=== PATIENT | female | born 1940 | race Caucasian/White ===

== ENCOUNTER 2021-03-16 17:39 | Emergency (ER) | payer MEDICARE, OTHER ==
[2021-03-16] MEDS ORDERED: Famotidine 20 MG/2 ML SDV IVPUSH ONE (18:39)
[2021-03-16] MEDS ORDERED: Sodium Chloride 0.9% 1,000 ML IV ONE (18:39)
[2021-03-16] MEDS ORDERED: Alum Hydrox/Mag Hydrox/Simeth 15 ML, Lidocaine 2% 5 ML PO ONE ×2 (18:39)
--- NOTE | 2021-03-16 18:46 | EDM.PDOC ---
<Steve Jesus - Last Filed: 03/16/21 18:41> ED HPI GENERAL MEDICAL PROBLEM - General Chief Complaint: Abdominal Pain Stated Complaint: ABDOMINAL PAIN Time Seen by Provider: 03/16/21 18:31 - History of Present Illness INITIAL COMMENTS - FREE TEXT/NARRATIVE: Patient is a 81-year-old female who presents today for abdominal pain. Patient states that she takes methotrexate once a week for arthritis and she took it this past Thursday without any food. Since that time she has had an achy feeling in her belly. Patient also has some nausea has not been taking her meds due to the nausea. Patient denies any nausea diarrhea urinary symptoms fever chills. Patient states nothing makes the pain worse but sitting and laying still does make the pain better. abdomen Pain Score (Numeric/FACES): 3 - Related Data Allergies Allergy/AdvReac Type Severity Reaction Status Date / Time No Known Allergies Allergy Verified 03/16/21 18:41 Home Meds: Home Meds . [Unable to Verify Home Med List] 03/16/21 [History] ED ROS GENERAL - Review of Systems Constitutional: Reports: No Symptoms HEENT: Reports: No Symptoms Respiratory: Reports: No Symptoms Cardiovascular: Reports: No Symptoms Endocrine: Reports: No Symptoms GI/Abdominal: Reports: Abdominal Pain : Reports: No Symptoms Musculoskeletal: Reports: No Symptoms Skin: Reports: No Symptoms Neurological: Reports: No Symptoms Psychiatric: Reports: No Symptoms Hematologic/Lymphatic: Reports: No Symptoms Immunologic: Reports: No Symptoms ED EXAM, GI/ABD - Physical Exam Exam: See Below Exam Limited By: No Limitations General Appearance: Alert, WD/WN, No Apparent Distress Respiratory/Chest: No Respiratory Distress, Lungs Clear, Normal Breath Sounds Cardiovascular: Normal Peripheral Pulses, Regular Rate, Rhythm GI/Abdominal Exam: Normal Bowel Sounds, Soft, Non-Tender Neurological: Alert, Oriented, CN II-XII Intact, Normal Cognition Departure - Departure Disposition: Home, Self-Care 01 Clinical Impression: Gastritis - Discharge Information Instructions: Gastritis, Adult, Liva[facility] Referrals: PCP,Not In Area [Primary Care Provider] - Forms: ED Department Discharge Additional Instructions: For the time being take Pepcid [id number] in addition to your pantoprazole. Carry Maalox and Tums. If you have any pain that does not get be tter with those then it would be fine to return for further evaluation. If you have abdominal pain with a fever vomiting diarrhea or symptoms that are hard to control you may return. You are welcome to return at anytime for reevaluation. [facility] [address] [place] [id number] [facility] [address] [place] [id number] The following information is given to patients seen in the emergency department who are being discharged to home. This information is to outline your options for follow-up care. We provide all patients seen in our emergency department with a follow-up referral. The need for follow-up, as well as the timing and circumstances, are variable depending upon the specifics of your emergency department visit. If you don't have a primary care physician on staff, we will provide you with a referral. We always advise you to contact your personal physician following an emergency department visit to inform them of the circumstance of the visit and for follow-up with them and/or the need for any referrals to a consulting specialist. The emergency department will also refer you to a specialist when appropriate. This referral assures that you have the opportunity for follow-up care with a specialist. All of these measure are taken in an effort to provide you with optimal care, which includes your follow-up. Under all circumstances we always encourage you to contact your private physician who remains a resource for coordinating your care. When calling for follow-up care, please make the office aware that this follow-up is from your recent emergency room visit. If for any reason you are refused follow-up, please contact the [facility] Emergency Department at and asked to speak to the emergency department charge nurse. Sepsis Event Note (ED) - Evaluation Sepsis Screening Result: No Definite Risk - Assessment/Plan Plan: Patient 81-year-old female presents today for abdominal pain. On exam patient has no tenderness to palpation. Will obtain basic labs UA provide pain control and reassess. <Adam Hayden - Last Filed: 03/16/21 20:23> ED ROS GENERAL - Review of Systems Review Of Systems: Comprehensive ROS is negative, except as noted in HPI. ED EXAM, GI/ABD - Physical Exam Exam: See Below Text/Narrative:: Physical exam is contained within the document Course - Vital Signs Text/Narrative:: 1915 hrs. patient turned over to me by my partner at the end of his shift. Feels much better after GI cocktail. Abdomen soft and nontender. No umbilical hernia with Valsalva. Pain is right in the umbilicus and markedly improved. Impression is her methotrexate has irritated her gastritis or ulcer. Plan to add H2 alysia to her PPI and have her carry antacids. It looks like she will probably be discharged. 2021 hrs. the patient's abdomen remains not significantly tender. She feels comfortable trying to add Pepcid and carry an acids. She will be discharged Last Recorded V/S: Last Vital Signs Temp 36.6 C 03/16/21 18:24 Pulse 85 03/16/21 18:24 Resp 18 03/16/21 18:24 BP 162/84 H 03/16/21 18:24 Pulse Ox - Orders/Labs/Meds Orders: Active Orders 24 hr Category Date Time Status UA W/FABIEN RFLX IF INDICATED [URIN] Stat Lab 03/16/21 18:39 Ordered Labs: Laboratory Tests 03/16/21 03/16/21 03/16/21 Range/Units 18:47 18:47 18:47 WBC 7.80 (4.0-11.0) K/uL RBC 4.84 (4.30-5.90) M/uL Hgb 14.4 (12.0-16.0) g/dL Hct 43.8 (36.0-46.0) % MCV 90.5 (80.0-98.0) fL MCH 29.8 (27.0-32.0) pg MCHC 32.9 (31.0-37.0) g/dL RDW Std Deviation 44.4 (28.0-62.0) fl RDW Coeff of Ignacio 14 (11.0-15.0) % Plt Count 449 H (150-400) K/uL MPV 9.90 (7.40-12.00) fL Neut % (Auto) 65.3 (48.0-80.0) % Lymph % (Auto) 23.7 (16.0-40.0) % [place] % (Auto) 7.9 (0.0-15.0) % Eos % (Auto) 2.6 (0.0-7.0) % Baso % (Auto) 0.5 (0.0-1.5) % Neut # (Auto) 5.1 (1.4-5.7) K/uL Lymph # (Auto) 1.9 (0.6-2.4) K/uL [place] # (Auto) 0.6 (0.0-0.8) K/uL Eos # (Auto) 0.2 (0.0-0.7) K/uL Baso # (Auto) 0.0 (0.0-0.1) K/uL Nucleated RBC % 0.0 /100WBC Nucleated RBCs # 0 K/uL Lactate 0.9 (0.20-2.00) mmol/L Sodium 135 L (136-145) mmol/L Potassium 3.4 L (3.5-5.1) mmol/L Chloride 104 (98-107) mmol/L Carbon Dioxide 25.6 (21.0-32.0) mmol/L BUN 17 (7.0-18.0) mg/dL Creatinine 0.8 (0.6-1.0) mg/dL Est Cr Clr Drug Dosing 49.24 mL/min Estimated GFR (MDRD) > 60.0 ml/min Glucose 103 (74-106) mg/dL Calcium 9.0 (8.5-10.1) mg/dL Phosphorus 3.5 (2.6-4.7) mg/dL Magnesium 2.3 (1.8-2.4) mg/dL Total Bilirubin 0.3 (0.2-1.0) mg/dL AST 20 (15-37) IU/L ALT 29 (14-63) IU/L Alkaline Phosphatase 89 (46-116) U/L Total Protein 7.2 (6.4-8.2) g/dL Albumin 3.6 (3.4-5.0) g/dL Globulin 3.6 (2.6-4.0) g/dL Albumin/Globulin Ratio 1.0 (0.9-1.6) Lipase 119 (73-393) U/L Meds: Medications Discontinued Medications Generic Name Dose Route Start Last Admin Trade Name Freq PRN Reason Stop Dose Admin Al Hydroxide/Mg Hydroxide 15 0 ml 03/16/21 18:39 03/16/21 18:57 ml/ Lidocaine HCl 5 ml PO 03/16/21 18:40 1 each ONETIME ONE Administration Famotidine 20 mg 03/16/21 18:39 03/16/21 18:59 Famotidine 20 Mg/2 Ml Sdv IVPUSH 03/16/21 18:40 20 mg ONETIME ONE Administration Sodium Chloride 1,000 mls @ 999 mls/hr 03/16/21 18:39 03/16/21 18:56 Normal Saline IV 03/16/21 19:39 999 mls/hr .BOLUS ONE Administration Ondansetron HCl 4 mg 03/16/21 19:38 03/16/21 19:39 Ondansetron 4 Mg/2 Ml Sdv IVPUSH 03/16/21 19:39 4 mg ONETIME ONE Administration Departure - Departure Time of Disposition: 20:23 Condition: Good Sepsis Event Note (ED) - Focused Exam Vital Signs: Vital Signs Temp Pulse Resp BP 03/16/21 18:24 36.6 C 85 18 162/84 H
[2021-03-16 19:22] LABS: BLOOD UREA NITROGEN,BUN 17 mg/dL (7.0-18.0); CARBON DIOXIDE,CO2 25.6 mmol/L (21.0-32.0); CHLORIDE,CL 104 mmol/L (98-107); GLUCOSE RANDOM 103 mg/dL (74-106); LIPASE 119 U/L (73-393); POTASSIUM,K 3.4 mmol/L (3.5-5.1); SODIUM,NA 135 mmol/L (136-145)
[2021-03-16] MEDS ORDERED: Ondansetron 4 MG/2 ML SDV IVPUSH ONE (19:38)
== END 2021-03-16 20:45 | disposition home or self-care (01) ==
LOC: MW.ED 17:39
DX: K29.70 Gastritis, unspecified, without bleeding (principal)
CPT/HCPCS: 36415; 80053; 83605; 83690; 83735; 84100; 85025; 96374; 96375; 99284; A9270; J2405; J3490; J7030; 99283